=== PATIENT | male | born 1945 | race Caucasian/White ===

== ENCOUNTER → 2017-08-02 | Outpatient (CLI) | payer MEDICARE ==
[~2017-08-02] MED LIST: ACET-66 PO; ASPI-555 PO; ATOR40TA69 PO; CALC-844 PO; CETI10TA57 PO; DOMPERIDONE PO; FENO134C PO; FISH1CAP27 PO; GLUC-145 PO; IBUP-1673 PO; LISI-613 PO; METO-408 PO; PANT40TA25 PO
== END | disposition home or self-care (01) ==
LOC: RAH 11:22
PROVIDERS: ATTEND Family Medicine
DX: J44.9 Chronic obstructive pulmonary disease, unspecified (principal); M47.895 Other spondylosis, thoracolumbar region; Z98.890 Other specified postprocedural states
CPT/HCPCS: 71046

== ENCOUNTER → 2017-10-28 | Outpatient (CLI) | payer MEDICARE | END | disposition home or self-care (01) | LOC: RAH 07:24 | PROVIDERS: ATTEND Internal Medicine Gastroenterology | DX: K80.20 Calculus of gallbladder without cholecystitis without obstruction (principal) | CPT/HCPCS: 76700 ==

== ENCOUNTER → 2017-11-30 | Outpatient (CLI) | payer MEDICARE | END | disposition home or self-care (01) | LOC: RAH 10:08 | PROVIDERS: ATTEND Internal Medicine Gastroenterology | DX: K80.20 Calculus of gallbladder without cholecystitis without obstruction (principal); R14.0 Abdominal distension (gaseous) | CPT/HCPCS: 78226; A9537 ==

== ENCOUNTER 2019-03-01 05:42 | Day surgery (SDC) | payer MEDICARE ==
[~2019-03-01] VITALS: Ht 177.8 cm; Wt 70.3 kg
[2019-03-01] MEDS ORDERED: SODIUM CHLORIDE 0.9% 1000ML 1,000 ML IV ONE (05:43)
[2019-03-01 06:14] VITALS: BP 177/71
[2019-03-01] MEDS ORDERED: TURM500C9 PO (07:11)
[2019-03-01] MEDS ORDERED: SUCR1TAB2 PO (07:11)
[2019-03-01] MEDS ORDERED: BUDESONIDE PO (07:11)
[2019-03-01] MEDS ORDERED: ROSU20TA31 PO (07:11)
[2019-03-01] MEDS ORDERED: RANI300C PO (07:11)
[2019-03-01] MEDS ORDERED: GING550C5 PO (07:11)
[2019-03-01] MEDS ORDERED: METOPROLOL ER PO (07:11)
[2019-03-01] MEDS ORDERED: LIDOP TP (07:12)
[2019-03-01] MEDS ORDERED: PROPOFOL 10 MG/ML 20ML VIAL IV ONE ×2 (07:49)
[2019-03-01 08:03] VITALS: BP 134/57
[2019-03-01 08:08] VITALS: BP 134/58
[2019-03-01 08:13] VITALS: BP 147/62
[2019-03-01 08:18] VITALS: BP 146/62
[2019-03-01 08:23] VITALS: BP 148/62
--- NOTE | 2019-03-01 08:23 | NUR ---
dc dc instructions given to pt's spouse, instructed to f/u with dr. melara. to continue home meds. pt awake and alert ,no distress noted. denied any pain or discomforts.
--- NOTE | 2019-03-01 08:35 | NUR ---
dc pt dc home via [facility], no distress noted. accompanied by spouse. pt denied any pain or discomforts
== END 2019-03-01 08:35 | disposition home or self-care (01) ==
LOC: ENDO 05:42 → DAH 05:42 → ENDO 08:35
PROVIDERS: ATTEND Internal Medicine
DX: K22.2 Esophageal obstruction (principal); K31.89 Other diseases of stomach and duodenum; K21.0 Gastro-esophageal reflux disease with esophagitis; K26.9 Duodenal ulcer, unspecified as acute or chronic, without hemorrhage or perforation; I10 Essential (primary) hypertension; E11.9 Type 2 diabetes mellitus without complications; E78.5 Hyperlipidemia, unspecified; M19.90 Unspecified osteoarthritis, unspecified site; I25.10 Atherosclerotic heart disease of native coronary artery without angina pectoris; Z85.01 Personal history of malignant neoplasm of esophagus; Z98.890 Other specified postprocedural states; Z72.89 Other problems related to lifestyle; Z87.891 Personal history of nicotine dependence; Z86.010 Personal history of colon polyps; Z95.818 Presence of other cardiac implants and grafts; Z88.8 Allergy status to other drugs, medicaments and biological substances; Z79.82 Long term (current) use of aspirin; Z79.899 Other long term (current) drug therapy; Z88.5 Allergy status to narcotic agent; Z82.49 Family history of ischemic heart disease and other diseases of the circulatory system; Z83.3 Family history of diabetes mellitus; Z82.3 Family history of stroke
CPT/HCPCS: 43239; 43249; 88305; 93005; A4606; J2704 ×2; J7030

== ENCOUNTER 2022-11-30 07:32 | Day surgery (SDC) | payer MEDICARE ==
[2022-11-26 15:41] LABS: BASOPHILS % (AUTO) 0.7 % (0.0-5.0); EOSINOPHILS % (AUTO) 10.3 % (0.0-8.0); HEMATOCRIT 35.4 % (42-54); LYMPHOCYTES % (AUTO) 27.4 % (21.0-51.0); MEAN CORPUSCULAR HEMOGLOBIN 28.1 pg (27.0-33.0); MEAN CORPUSCULAR HGB CONC 31.1 g/dL (32.0-36.0); MEAN CORPUSCULAR VOLUME 90.3 fL (79-99); MONOCYTES % (AUTO) 11.1 % (3.0-13.0); NEUTROPHILS % (AUTO) 50.2 % (40.0-77.0); PLATELET COUNT (AUTO) 255 K/uL (130-400); RED BLOOD CELL COUNT(AUTO) 3.92 MIL/uL (4.50-6.20); RED CELL DISTRIBUTION WIDTH 14.3 % (11.0-15.5)
[2022-11-26 15:53] VITALS: BP 200/90
[2022-11-26 15:54] LABS: INR 1.08 (0.85-1.15); PROTHROMBIN TIME 11.7 SEC (9.6-11.6)
[2022-11-26 15:55] LABS: CREATININE 1.1 mg/dL (0.5-1.5); PARTIAL THROMBOPLASTIN TIME 27.3 SEC (26.3-35.5); POTASSIUM 4.2 mmol/L (3.5-5.1)
[2022-11-26 16:02] LABS: APPEARANCE,URINE CLEAR (CLEAR); BILIRUBIN,URINE NEGATIVE (NEGATIVE); COLOR,URINE COLORLESS (YELLOW); GLUCOSE, URINE (UA) NEGATIVE (NEGATIVE); KETONES,URINE NEGATIVE (NEGATIVE); LEUKOCYTE ESTERASE ,URINE NEGATIVE Leu/uL (NEGATIVE); NITRATE,URINE NEGATIVE (NEGATIVE); OCCULT BLOOD,URINE NEGATIVE (NEGATIVE); PROTEIN,URINE NEGATIVE (NEGATIVE); UROBILINOGEN,URINE 0.2 mg/dL (0.2-1.0)
[2022-11-26 16:08] LABS: MUCUS,URINE RARE LPF (None Seen); WBC,URINE 0-1 /HPF (0-1)
[2022-11-30] VITALS (9 sets, daily range): BP systolic 149–188; BP diastolic 54–84
[~2022-11-30] VITALS: Ht 177.8 cm; Wt 65.3 kg
[~2022-11-30 07:32] MED LIST changes: +ASCO500C18 PO; -ASPI-555 PO; +ASPI-556 PO; -ATOR40TA69 PO; +BUDESONIDE PO; -CALC-844 PO; +CARV12.511 PO; -CETI10TA57 PO; +FAMO40TA7 PO; -FENO134C PO; -FISH1CAP27 PO; +GINK60CA2 PO; -GLUC-145 PO; -IBUP-1673 PO; +IBUP-2697 PO; -LISI-613 PO; +MEGE40TA8 PO; -METO-408 PO; +OMEP40CA21 PO; +OXYB10TA30 PO; -PANT40TA25 PO; +ROSU20TA31 PO; +SUCR1TAB2 PO; +TAMS-1 PO; +TURM500C9 PO; +VITA800012 PO
[2022-11-30] MEDS ORDERED: 0.9%NACL 1000ML 1,000 ML IV ONE (08:15)
[2022-11-30] MEDS ORDERED: IOHEXOL 350 MG/ML 100ML INFUS..BTL IV ONE (13:42)
[2022-11-30] MEDS ORDERED: IOHEXOL-350 50ML VIAL IV ONE (13:42)
[2022-11-30] MEDS ORDERED: FENTANYL CITRATE PF 50 MCG/1 ML 2ML VIAL ONE (13:42)
[2022-11-30] MEDS ORDERED: MIDAZOLAM HCL 1 MG/ML 2ML VIAL ONE (13:42)
[2022-11-30] MEDS ORDERED: LIDOCAINE HCL 400MG/20ML VIAL ONE (13:42)
[2022-11-30] MEDS ORDERED: NITROGLYCERIN 50MG VIAL ONE (13:42)
[2022-11-30] MEDS ORDERED: SODIUM BICARB 50MEQ 50ML VIAL 50 ML ONE (13:48)
[2022-11-30] MEDS ORDERED: BIVALIRUDIN 250 MG/VIAL IV ONE (14:31)
[2022-11-30] MEDS ORDERED: LABETALOL 20MG SYG IV ONE ×3 (14:38→16:50)
[2022-11-30] MEDS ORDERED: 0.9%NACL 1000ML 1,000 ML IV SCH (15:30)
[2022-11-30] MEDS ORDERED: LABETALOL 20MG SYG IV SCH (17:00)
== END 2022-11-30 19:38 | disposition home or self-care (01) ==
LOC: DAH 07:32
PROVIDERS: ATTEND Internal Medicine Cardiovascular Disease
DX: I25.119 Atherosclerotic heart disease of native coronary artery with unspecified angina pectoris (principal); I25.82 Chronic total occlusion of coronary artery; I10 Essential (primary) hypertension; E78.00 Pure hypercholesterolemia, unspecified; E10.9 Type 1 diabetes mellitus without complications; Z79.01 Long term (current) use of anticoagulants; Z98.890 Other specified postprocedural states; Z95.5 Presence of coronary angioplasty implant and graft; Z98.84 Bariatric surgery status; Z79.899 Other long term (current) drug therapy; Z83.3 Family history of diabetes mellitus; Z88.8 Allergy status to other drugs, medicaments and biological substances; Z88.0 Allergy status to penicillin; Z88.6 Allergy status to analgesic agent; Z79.82 Long term (current) use of aspirin
CPT/HCPCS: 80048; 83880; 85025; 85610; 85730; 81001; 36415; 71045; 93005; 93458; C1894 ×2; Q9965; C1760; J3490 ×3; J7030; J2250; J1644; Q9967; 96360; 96361; 99156; 99157; J0583; J3010

== ENCOUNTER 2022-12-17 08:08 | Day surgery (SDC) | payer MEDICARE ==
[2022-12-15 12:48] LABS: APPEARANCE,URINE CLEAR (CLEAR); BILIRUBIN,URINE NEGATIVE (NEGATIVE); COLOR,URINE LIGHT-YELLOW (YELLOW); GLUCOSE, URINE (UA) NEGATIVE (NEGATIVE); KETONES,URINE NEGATIVE (NEGATIVE); LEUKOCYTE ESTERASE ,URINE NEGATIVE Leu/uL (NEGATIVE); NITRATE,URINE NEGATIVE (NEGATIVE); OCCULT BLOOD,URINE NEGATIVE (NEGATIVE); PH,URINE 5.5 (5.0-8.0); PROTEIN,URINE NEGATIVE (NEGATIVE); UROBILINOGEN,URINE 0.2 mg/dL (0.2-1.0)
[2022-12-15 13:02] LABS: BASOPHILS % (AUTO) 0.6 % (0.0-5.0); EOSINOPHILS % (AUTO) 9.9 % (0.0-8.0); HEMATOCRIT 34.8 % (42-54); LYMPHOCYTES % (AUTO) 21.8 % (21.0-51.0); MEAN CORPUSCULAR HEMOGLOBIN 28.3 pg (27.0-33.0); MEAN CORPUSCULAR HGB CONC 31.3 g/dL (32.0-36.0); MEAN CORPUSCULAR VOLUME 90.4 fL (79-99); MONOCYTES % (AUTO) 9.1 % (3.0-13.0); NEUTROPHILS % (AUTO) 58.3 % (40.0-77.0); PLATELET COUNT (AUTO) 251 K/uL (130-400); RED BLOOD CELL COUNT(AUTO) 3.85 MIL/uL (4.50-6.20); RED CELL DISTRIBUTION WIDTH 14.3 % (11.0-15.5); WHITE BLOOD COUNT (AUTO) 6.7 K/uL (4.8-10.8)
[2022-12-15 13:16] LABS: INR 1.05 (0.85-1.15); POTASSIUM 4.1 mmol/L (3.5-5.1); PROTHROMBIN TIME 11.4 SEC (9.6-11.6)
[2022-12-15 13:17] LABS: PARTIAL THROMBOPLASTIN TIME 27.3 SEC (26.3-35.5)
[2022-12-15 13:39] LABS: B-TYPE NATRIURETIC PEPTIDE 33 pg/mL (0-100)
[2022-12-15 16:04] VITALS: BP 149/65
[~2022-12-17] VITALS: Ht 175.3 cm; Wt 64.5 kg
[2022-12-17] VITALS (9 sets, daily range): BP systolic 131–189; BP diastolic 61–79
[~2022-12-17 08:08] MED LIST changes: +CLOP75TA32 PO; +ISOS20TA85 PO; +NITR0.4T50 SL; -OMEP40CA21 PO
[2022-12-17] MEDS ORDERED: 0.9%NACL 1000ML 1,000 ML IV ONE (08:34)
[2022-12-17] MEDS ORDERED: LIDOCAINE HCL 1% MDV 50ML VIAL ONE (12:14)
[2022-12-17] MEDS ORDERED: IOHEXOL 350 MG/ML 100ML INFUS..BTL IV ONE (12:14)
[2022-12-17] MEDS ORDERED: IOHEXOL-350 50ML VIAL IV ONE (12:14)
[2022-12-17] MEDS ORDERED: HEPARIN 10,000 UNIT/10ML (1,000 UNIT/ML) VIAL ONE (12:14)
[2022-12-17] MEDS ORDERED: NITROGLYCERIN 50MG VIAL ONE (12:14)
[2022-12-17] MEDS ORDERED: SODIUM BICARB 50MEQ 50ML VIAL 50 ML ONE (12:14)
[2022-12-17] MEDS ORDERED: NICARDIPINE 25MG INJ IV ONE (12:14)
[2022-12-17] MEDS ORDERED: BIVALIRUDIN 250 MG/VIAL IV ONE (13:16)
[2022-12-17] MEDS ORDERED: MIDAZOLAM HCL 1 MG/ML 2ML VIAL ONE (13:32)
[2022-12-17] MEDS ORDERED: FENTANYL CITRATE PF 50 MCG/1 ML 2ML VIAL ONE (13:32)
[2022-12-17] MEDS ORDERED: LABETALOL 20MG SYG IV ONE ×2 (13:43→14:02)
[2022-12-17] MEDS ORDERED: LABETALOL 20MG VIAL IV ONE (14:06)
[2022-12-17] MEDS ORDERED: ACETAMINOPHEN WITH CODEINE 1 TAB TAB PO PRN ×2 (14:30)
[2022-12-17] MEDS ORDERED: 0.9%NACL 1000ML 1,000 ML IV SCH (14:30)
[2022-12-17] MEDS ORDERED: CLOPIDOGREL 300MG TAB ONE (14:55)
[2022-12-17] MEDS ORDERED: ASPIRIN 81MG CHEW TAB ONE (14:55)
[2022-12-18] MEDS ORDERED: ASPIRIN 81MG CHEW TAB PO SCH (09:00)
[2022-12-18] MEDS ORDERED: CLOPIDOGREL 75MG TAB PO SCH (09:00)
== END 2022-12-17 17:50 | disposition home or self-care (01) ==
LOC: DAH 08:08
PROVIDERS: ATTEND Internal Medicine Cardiovascular Disease
DX: I25.110 Atherosclerotic heart disease of native coronary artery with unstable angina pectoris (principal); I10 Essential (primary) hypertension; E78.00 Pure hypercholesterolemia, unspecified; E10.9 Type 1 diabetes mellitus without complications; Z98.1 Arthrodesis status; Z83.3 Family history of diabetes mellitus; Z98.84 Bariatric surgery status; Z98.890 Other specified postprocedural states; Z79.01 Long term (current) use of anticoagulants; Z79.899 Other long term (current) drug therapy; Z95.5 Presence of coronary angioplasty implant and graft
CPT/HCPCS: 80048; 83880; 85025; 85610; 85730; 81003; 36415; 71045; 93005; 93571; 93572 ×2; 0715T; C9600; C1761; C1894 ×2; C1887; C1760; C1769 ×2; C1874; J3010; J7030; J3490 ×4; J2250; J1644; J0583; Q9967 ×2; A4215; A4222; A4221; A4663; A4216; A4606; Q9965; A4223 ×3; 93454; 99156; 99157

== ENCOUNTER → 2024-07-13 | Outpatient (CLI) | payer MEDICARE ==
[~2024-07-13] MED LIST changes: -ROSU20TA31 PO; +ROSU20TA98 PO
[2024-07-13] MEDS: REGADENOSON 0.4 MG/5 ML PF SYG IVP SCH (11:47)
== END | disposition home or self-care (01) ==
LOC: RAH 08:23
PROVIDERS: ATTEND Internal Medicine Cardiovascular Disease
DX: R07.9 Chest pain, unspecified (principal); I25.10 Atherosclerotic heart disease of native coronary artery without angina pectoris
CPT/HCPCS: 78452; 93017; J2785; A9500 ×2

== ENCOUNTER → 2024-11-17 | Outpatient (CLI) | payer MEDICARE ==
[~2024-11-17] MED LIST changes: +IOHEXOL 350 MG/ML 100ML INFUS..BTL IV ONE; +ISOS-58 PO; -ISOS20TA85 PO; +MEGE40TA30 PO; -MEGE40TA8 PO; -TAMS-1 PO; +TAMS-55 PO
--- NOTE | 2024-11-17 09:56 | HMCIMG ---
CT ANGIO ABDOMEN PELVIS HISTORY: Upper abdominal pain COMPARISON: None TECHNIQUE: CT angiography of the abdomen and pelvis was obtained using angiographic technique with maximum intensity projection reconstruction images. Patient was given 100 cc of Omnipaque through intravenous route. Oral contrast was not given. FINDINGS: No pleural effusion is seen bilaterally. There is no evidence of parenchymal disease or pulmonary nodule of the visualized lower lungs. Degenerative changes of the thoracolumbar spine are present. The heart is not enlarged. Stomach is seen in the right posterior chest cavity may be related to gastric pull-through procedure and clinical correlation is. Postop changes are seen of the thoracolumbar spine with laminectomy changes causing artifacts and motion. COPD changes are also seen. Poststernotomy changes are seen. Liver measured 16.2 cm. There is left renal cyst measuring 3 cm. Postcholecystectomy changes are seen. The liver, spleen, adrenal glands and pancreas are unremarkable. There is no evidence of hydronephrosis bilaterally. No evidence of renal stone is seen. Fecal material is seen in the colon. There are normal size retroperitoneal and mesenteric lymph nodes. No ascites is seen. Atherosclerotic changes are present. There is diffuse atherosclerotic disease. No evidence of abdominal aortic aneurysm is seen. The celiac, superior mesenteric and bilateral renal arteries are grossly patent. The visualized portion of the iliac and femoral arterial systems are also grossly patent. Pelvic sidewalls are symmetric bilaterally. Bladder is well distended without wall thickening. IMPRESSION: 1. Large amount of fecal material is seen in the colon. Postcholecystectomy changes are seen. Common duct measures 7.3 mm which is within normal limits for postcholecystectomy patient. There is atherosclerosis. Otherwise grossly unremarkable CT angiogram study. Flow and enhancement is seen specifically in the celiac artery and superior mesenteric artery. CT was performed with one or more following dose reduction techniques: automated exposure control, adjustment of the mA and kv according to patient's size, or use of a iterative reconstruction technique.
== END | disposition home or self-care (01) ==
LOC: RAH 07:37
PROVIDERS: ATTEND Internal Medicine Gastroenterology
DX: N28.1 Cyst of kidney, acquired (principal); R10.10 Upper abdominal pain, unspecified; R63.4 Abnormal weight loss; M47.815 Spondylosis without myelopathy or radiculopathy, thoracolumbar region; J44.9 Chronic obstructive pulmonary disease, unspecified; I70.0 Atherosclerosis of aorta; Z90.49 Acquired absence of other specified parts of digestive tract
CPT/HCPCS: 74174; Q9967